=== PATIENT | male | born 1940 | race Caucasian/White ===

== ENCOUNTER 2020-06-02 14:23 | Emergency (ER) | payer OTHER, SELFPAY ==
[2020-06-02] VITALS (9 sets, daily range): BP systolic 154–175; BP diastolic 84–94; PULSE 52–80; RESP 18; TEMP 36.9; O2SAT 92–99; BMI 23.6
--- NOTE | 2020-06-02 14:47 | DI.RAD.S_ITS ---
PROCEDURE: XR HIP W PEL IF DONE LT 2V INDICATIONS: glf TECHNIQUE: AP pelvis with lateral view(s) of the left hip(s). COMPARISON: None. FINDINGS: Bones: Fracture of the left superior and inferior pubic rami. Lower lumbar spondylosis and moderate bilateral hip joint degeneration. Soft tissues: The visualized bowel gas pattern is normal. No suspicious soft tissue calcifications. IMPRESSION: Fractures of the left superior and inferior pubic rami. Dictated by: Cliff Marie M.D. on 06/02/2020 at 15:55 Approved by: Cliff Marie M.D. on 06/02/2020 at 15:57
[2020-06-02] MEDS: IBUPROFEN 400 MG TABLET PO (16:38)
[2020-06-02] MEDS: OXYCODONE/APAP 5/325 PREPACK 1 BOTTLE MISC (16:38)
[2020-06-02] MEDS: OXYCODONE/ACETAMINOPHEN 5/325 TABLET 1 TAB PO (16:39)
--- NOTE | 2020-06-02 17:24 | PC.NURSE ---
Pt ambulates using walker with some difficulty, abnormal gait.
--- NOTE | 2020-06-02 17:54 | ED.FALL ---
HPI - Fall General Chief Complaint: Fall Stated Complaint: Fall Time Seen by Provider: 06/02/20 14:31 Source: EMS Mode of arrival: EMS History of Present Illness HPI Narrative: 80-year-old gentleman with hypertension hyperlipidemia who suffered a mechanical fall at [place]. He landed on his left buttock and was in too much pain to stand up. His transported by airlift for further evaluation. At the time he has arrived in the emergency room his pain is down to 1/10 as long as he still. Leg is straight there is no foreshortening or internal rotation. Related Data Previous Rx's Medication Instructions Recorded oxycodone-acetaminophen 1 tab PO Q6H PRN #20 tab 06/02/20 polyethylene glycol 3350 [Miralax] 17 gram PO DAILY PRN #30 each 06/02/20 Allergies Allergy/AdvReac Type Severity Reaction Status Date / Time No Known Drug Allergies Allergy Verified 06/02/20 16:38 Review of Systems Review of Systems Narrative: Pertinent positive and negative findings as per HPI Remainder of review of systems is otherwise unremarkable for Constitutional: Fevers, chills, weakness ENT: No sore throat, neck pain, ear pain CV: Chest pain, palpitations, dyspnea on exertion Respiratory: Cough, wheeze, dyspnea GI: Nausea, vomiting, diarrhea, change in bowel habits, black or bloody stools : Dysuria, hematuria, flank pain MS: Muscle weakness, numbness, joint swelling or warmth Skin: Rashes, nonhealing lesions Neuro: Syncope, dizziness, tingling Patient History Medical History Closed pelvic fracture (Acute) Hyperlipidemia (Acute) Hypertension (Acute) Social History Smoking Status: Never smoker Smoking Status: Never smoker Exam Narrative Exam Narrative: General: Healthy appearing, in no acute distress. Able to give a complete and coherent history. Well-nourished well-developed HEENT: Moist mucous membranes, normal sclera with reactive pupils, Neck: No JVD, supple Respiratory: Lungs are clear to auscultation, no wheezing no rales no rhonchi. Full and symmetrical air movement Cardiac: Regular rate and rhythm no murmurs no bruits Abdomen: Soft nontender good bowel tones, no flank pain Skin: Warm and dry, no rashes Neurologic: Grossly neurologically intact with no obvious asymmetries or abnormalities Extremities: Minor abrasion to the left knee. Minimal tenderness with internal and external rotation of the left hip. Mild tenderness with palpation to left ischial tuberosity. No tenderness along the lumbar spine or sacrum. No tenderness with pelvic ring compression. Neurovascularly intact bilaterally with lower extremities Psych: Cooperative, appropriate insight and affect Initial Vital Signs Initial Vital Signs: Vital Signs Temperature 98.5 F 06/02/20 14:26 Pulse Rate 64 06/02/20 14:26 Respiratory Rate 18 06/02/20 14:26 Blood Pressure 160/84 H 06/02/20 14:26 Pulse Oximetry 97 06/02/20 14:26 Course Orders Ordered: ED Orders 06/02/20 14:47 XR hip w pel if done LT 2V Stat Discontinued Medications Ibuprofen (Advil) 400 mg PO NOW ONE Stop: 06/02/20 16:28 Last Admin: 06/02/20 16:38 Dose: 400 mg Documented by: KBROTEM Oxycodone/Acetaminophen (Percocet 5/325) 1 tab PO NOW ONE Stop: 06/02/20 16:28 Last Admin: 06/02/20 16:39 Dose: 1 tab Documented by: KBROTEM Oxycodone/Acetaminophen (Endocet 5/325 Prepack) 1 bottle MISC SEEINSTR ONE Stop: 06/02/20 16:28 Last Admin: 06/02/20 16:38 Dose: 1 bottle Documented by: KBROTEM Vital Signs Vital signs: Vital Signs - 8 hr 06/02/20 14:26 06/02/20 14:31 06/02/20 14:32 Temperature 98.5 F Pulse Rate 64 52 L 52 L Respiratory Rate 18 Blood Pressure 160/84 H 166/94 H Pulse Oximetry 97 92 99 06/02/20 15:04 06/02/20 15:30 06/02/20 16:00 Temperature Pulse Rate 55 L 64 69 Respiratory Rate Blood Pressure Pulse Oximetry 97 97 96 06/02/20 16:30 06/02/20 17:00 Temperature Pulse Rate 69 69 Respiratory Rate Blood Pressure 175/94 H 167/85 H Pulse Oximetry 96 96 MDM - Fall Medical Records Attestation: I reviewed the patient's medical records. Imaging Data X-ray pelvis and hip: Radiologist's Impression: IMPRESSION: Fractures of the left superior and inferior pubic rami. Dictated by: Cliff Marie M.D. on 06/02/2020 at 15:55 MDM Narrative Medical decision making narrative: 80-year-old gentleman with a ground level fall after stumbling with fractures of the superior and inferior pubic rami on the left side. With moderate pain control Madhu is able to get up and with some difficulty use a walker but is able to circum navigate the entire emergency room and will be safe for home discharge. Will discussed pain control as well as voiding complications of excessive pain and narcotic use. Priority boarding pass to get back to work assess evening will be facilitated. He is safe for home discharge Discharge Plan Departure Patient Disposition: Home Clinical Impression: Closed pelvic fracture Qualifiers: Encounter type: initial encounter Pelvic bone location: ischium Fracture morphology: unspecified fracture morphology Fracture alignment: nondisplaced Laterality: left Qualified Code(s): S32.602A - Unspecified fracture of left ischium, initial encounter for closed fracture Fall Qualifiers: Encounter type: initial encounter Qualified Code(s): W19.XXXA - Unspecified fall, initial encounter Activity Restrictions/Additional Instructions: Thank you for coming in today Fortunately you did not break your hip. You did break your pubic rami, your Sitz bone on the left side. This can be painful however it will heal nicely and you do not need any surgery. There is no evidence of additional bleeding or other complications. Using 400 mg of ibuprofen (2 [id number] pills) and 1 Tylenol every 6 hours can be very helpful in controlling pain. For severe pain using 400 mg of ibuprofen and 1 Percocet can be helpful. Any day that, you use Percocet a narcotic, please also use a dose of MiraLax (17 g= 1 full purple cap full) in a large glass of water to prevent constipation Use the walker to help with mobility and stability. It is important that you do get up and move around. Please follow-up with your regular doctor in 3-4 days to make sure that you are healing well and pain is adequately controlled If he have additional complaints concerns or new findings please return to the emergency room. Prescriptions: New oxycodone-acetaminophen 5-325 mg tablet 1 tab PO Q6H PRN (Reason: pain) Qty: 20 RF: 0 polyethylene glycol 3350 [Miralax] 17 gram powder in packet 17 gram PO DAILY PRN (Reason: constipation) Qty: 30 RF: 0
== END 2020-06-02 18:14 | disposition home or self-care (01) ==
PROVIDERS: Emergency Provider Emergency Medicine
DX: S32.602A Unspecified fracture of left ischium, initial encounter for closed fracture (principal); W19.XXXA Unspecified fall, initial encounter; I10 Essential (primary) hypertension; E78.5 Hyperlipidemia, unspecified
CPT/HCPCS: 73502; 99283

== ENCOUNTER → 2020-07-22 14:59 | Outpatient (CLI) | payer OTHER, SELFPAY ==
--- NOTE | 2020-07-22 | DI.RAD.S_ITS ---
PROCEDURE: XR PELVIS 1-2V INDICATIONS: Other specified fracture of left pubis, subsequent encounter TECHNIQUE: 1 view(s) of the pelvis acquired. COMPARISON: [facility], CR, XR HIP W PEL IF DONE LT 2V, 06/02/2020, 14:41. FINDINGS: Bones: Healing superior and inferior pubic rami fractures. Stable alignment. Soft tissues: Visualized bowel gas pattern is normal. No suspicious soft tissue calcifications. IMPRESSION: Stable alignment of pubic rami fractures. Dictated by: Erin Estevez M.D. on 07/22/2020 at 16:28 Approved by: Erin Estevez M.D. on 07/22/2020 at 16:33
== END ==
PROVIDERS: PCP Family Medicine; Referring Provider Family Medicine; Visit Provider Family Medicine
DX: S32.592D Other specified fracture of left pubis, subsequent encounter for fracture with routine healing (principal); X58.XXXD Exposure to other specified factors, subsequent encounter
CPT/HCPCS: 72170

== ENCOUNTER 2020-11-23 23:13 | Inpatient (IN) | payer OTHER, SELFPAY ==
--- NOTE | 2020-11-23 23:25 | ED_ITS ---
HPI - General Adult General Chief complaint: Shortness of Breath/Dyspnea Stated complaint: EMT of [place] re:SOB, tiredness Time Seen by Provider: 11/23/20 23:25 History of Present Illness HPI narrative: 80-year-old gentleman with a history of hyperlipidemia and mild insomnia who presents with a couple of weeks of increasing exertional dyspnea and over the last couple of days has noticed that simply standing up please him slightly lightheaded and dyspneic. No specific chest pain. He denies any fevers, cough, chills, abdominal pain. He states that he has not had any change to bowel or bladder habits, and specifically denies black stools or blood in his stool. He has had no significant weight changes, does note that he slightly more fatigued does not complain of orthopnea and has not noticed significant lower extremity edema. He comes in from [facility] for further evaluation. Related Data Previous Rx's Medication Instructions Recorded oxycodone-acetaminophen 1 tab PO Q6H PRN #20 tab 06/02/20 polyethylene glycol 3350 [Miralax] 17 gram PO DAILY PRN #30 each 06/02/20 Allergies Allergy/AdvReac Type Severity Reaction Status Date / Time No Known Drug Allergies Allergy Verified 11/23/20 23:28 Review of Systems Review of Systems ROS Unobtainable: All systems reviewed & are unremarkable except as noted in HPI and below Patient History Medical History (Updated 11/24/20 @ 00:56 by Michelle Florentino MD) Closed pelvic fracture Hyperlipidemia Hypertension Social History Smoking Status: Never smoker Smoking Status: Never smoker Exam Narrative Exam Narrative: General: Healthy appearing, in no acute distress. Able to give a complete and coherent history. Well-nourished well-developed HEENT: Moist mucous membranes, pale sclera with reactive pupils, Neck: No JVD, supple Respiratory: Lungs are clear to auscultation, no wheezing no rales no rhonchi. Full and symmetrical air movement Cardiac: Regular rate and rhythm no murmurs no bruits Abdomen: Soft, nontender, good bowel tones, no flank pain Skin: Warm and dry, slightly pale no rashes Neurologic: Grossly neurologically intact with no obvious asymmetries or abnormalities Extremities: No trauma, well perfused Psych: Cooperative, appropriate insight and affect Rectal exam: Guaiac positive Initial Vital Signs Initial Vital Signs: Vital Signs Temperature 97.5 F L 11/23/20 23:27 Pulse Rate 83 11/23/20 23:27 Respiratory Rate 26 H 11/23/20 23:27 Blood Pressure 109/55 L 11/23/20 23:27 Pulse Oximetry 100 11/23/20 23:27 Course Orders Ordered: ED Orders 11/23/20 23:26 XR chest 1V Stat EKG-12 Lead Stat 11/23/20 23:30 COVID19 Stat Complete Blood Count AUTO DIFF Stat Comprehensive Metabolic Panel Stat D Dimer Stat Lactate (Lactic Acid) Stat Magnesium Stat NT-proBNP (BNP-Adult 18+) Stat Troponin I Stat 11/23/20 23:53 Packed Cells Stat Type and Screen Stat Urinalysis and Microscopic Stat 11/23/20 23:58 Blood Culture Stat 11/24/20 00:45 Procalcitonin Stat Pantoprazole Sodium 80 mg/ (Sodium Chloride) 100 mls @ 10 mls/hr IV CONT KEYONNA Discontinued Medications Acetaminophen (Acetaminophen 325 Mg Tablet) 975 mg PO NOW ONE Stop: 11/24/20 00:49 Diphenhydramine HCl (Diphenhydramine 50 Mg/Ml Vial) 25 mg IV NOW ONE Stop: 11/24/20 00:49 Furosemide (Furosemide 40 Mg/4 Ml Vial) 20 mg IV NOW ONE Stop: 11/24/20 00:49 Pantoprazole Sodium (Pantoprazole 40 Mg Vial) 40 mg IV NOW ONE Stop: 11/24/20 00:46 Vital Signs Vital signs: Vital Signs - 8 hr 11/23/20 23:27 11/23/20 23:36 Temperature 97.5 F L Pulse Rate 83 74 Respiratory Rate 26 H 20 Blood Pressure 109/55 L Pulse Oximetry 100 100 Medical Decision Making Medical Records Medical records reviewed: Yes I reviewed the patient's medical records. Lab Data Lab results reviewed: Yes I reviewed the patient's lab results. Result diagrams: 11/23/20 23:30 11/23/20 23:30 Labs: Lab Results 11/23/20 11/23/20 11/23/20 Range/Units 23:30 23:30 23:30 WBC 6.1 (4.5-11.0) X10^3/uL RBC 2.04 L (4.5-5.9) X10^6/uL Hgb 4.7 L* (13.5-17.5) g/dL Hct 15.5 L* (41-53) % MCV 76.0 L (80-100) fL MCH 22.9 L (26-34) PG MCHC 30.2 (30-36) % RDW 18.0 H (11.6-14.8) % Plt Count 375 (150-400) X10^3/uL Neut % (Auto) 76.5 H (50-75) % Lymph % (Auto) 13.7 L (25-40) % [place] % (Auto) 8.5 (3-14) % Eos % (Auto) 0.2 L (2-4) % Baso % (Auto) 1.1 (0-2) % Neut # (Auto) 4700 (6413-8329) /uL Lymph # (Auto) 800 L (4674-1071) /uL [place] # (Auto) 500 (0-900) /uL Eos # (Auto) 0 (0-450) /uL Baso # (Auto) 100 (0-100) /uL D-Dimer 356 H (<230) ng/mL Sodium 136 L (137-145) mmol/L Potassium 4.4 (3.4-5.1) mmol/L Chloride 104 (98-107) mmol/L Carbon Dioxide 22 (22-32) mmol/L BUN 36 H (9-20) mg/dL Creatinine 1.51 H (0.66-1.25) mg/dL Estimated GFR 44.5 L (>60) mL/min BUN/Creatinine Ratio 23.8 H (6-22) Glucose 101 (80-110) mg/dL Lactate (0.7-2.1) mmol/L Calcium 8.9 (8.4-10.2) mg/dL Magnesium 2.5 H (1.6-2.3) mg/dL Total Bilirubin 0.4 (0.2-1.3) mg/dL AST 29 (17-59) IU/L ALT 25 (<50) IU/L Alkaline Phosphatase 49 (38-126) U/L Troponin I < 0.012 (0.01-0.034) ng/mL NT-Pro-B Natriuret Pep 435 (<450) pg/mL Total Protein 6.2 L (6.3-8.2) g/dL Albumin 3.9 (3.5-5.0) g/dL Globulin 2.3 (1.7-4.1) g/dL Albumin/Globulin Ratio 1.7 (1.0-2.8) SARS-CoV-2 (PCR) (Negative) Blood Type Antibody Screen Crossmatch 11/23/20 11/23/20 11/24/20 Range/Units 23:30 23:30 00:05 WBC (4.5-11.0) X10^3/uL RBC (4.5-5.9) X10^6/uL Hgb (13.5-17.5) g/dL Hct (41-53) % MCV (80-100) fL MCH (26-34) PG MCHC (30-36) % RDW (11.6-14.8) % Plt Count (150-400) X10^3/uL Neut % (Auto) (50-75) % Lymph % (Auto) (25-40) % [place] % (Auto) (3-14) % Eos % (Auto) (2-4) % Baso % (Auto) (0-2) % Neut # (Auto) (6398-2057) /uL Lymph # (Auto) (8797-2073) /uL [place] # (Auto) (0-900) /uL Eos # (Auto) (0-450) /uL Baso # (Auto) (0-100) /uL D-Dimer (<230) ng/mL Sodium (137-145) mmol/L Potassium (3.4-5.1) mmol/L Chloride (98-107) mmol/L Carbon Dioxide (22-32) mmol/L BUN (9-20) mg/dL Creatinine (0.66-1.25) mg/dL Estimated GFR (>60) mL/min BUN/Creatinine Ratio (6-22) Glucose (80-110) mg/dL Lactate 4.5 H* (0.7-2.1) mmol/L Calcium (8.4-10.2) mg/dL Magnesium (1.6-2.3) mg/dL Total Bilirubin (0.2-1.3) mg/dL AST (17-59) IU/L ALT (<50) IU/L Alkaline Phosphatase (38-126) U/L Troponin I (0.01-0.034) ng/mL NT-Pro-B Natriuret Pep (<450) pg/mL Total Protein (6.3-8.2) g/dL Albumin (3.5-5.0) g/dL Globulin (1.7-4.1) g/dL Albumin/Globulin Ratio (1.0-2.8) SARS-CoV-2 (PCR) Negative (Negative) Blood Type A Positive Antibody Screen Negative Crossmatch See Detail Imaging Data Chest x-ray: Attestation: I personally reviewed and interpreted this imaging study as follows: My Impression: Radiology interprets the mild right perihilar opacity is a possible pneumonia. Given complete lack of clinical evidence to support this I think the likelihood of pneumonia is low at this time. Radiologist's Impression: Small hiatal hernia. Mild right perihilar opacity. This could represent developing pneumonia is. Normal heart, normal lung left side. Dr Jose Negron ECG Data Attestation: I personally reviewed and interpreted this ECG as follows: Interpretation: 75 beats per minute Sinus rhythmmild nonspecific ST T wave abnormalities without acute ischemic changes Normal axis, normal intervals MDM Narrative Medical decision making narrative: 80-year-old gentleman presents with progressive exertional dyspnea. EKG is unremarkable. There is no clinical suggestion of acute infection and my review of chest x-ray is unremarkable. Urine is still pending. Initial labs come back with dramatic anemia and slightly elevated lactic acid with creatinine slightly elevated at 1.5. At this point I suspect the hemoglobin of 4.7 and and hematocrit of 15.5 are to blame for the slightly elevated lactic acid rather than any infectious etiology. His troponin and proBNP are unremarkable. With a guaiac-positive stool most likely diagnosis at this point is GI blood loss slow and chronic. He clearly is tolerating the dramatic anemia quite well. Will transfuse 2 units of packed red blood cells, anticipate hospital admission and surgical consult for upper lower endoscopies to see if we can figure where the blood is actually coming from. As he does have a history of gastric bleeding approximately 5 years ago assumption is same source. Will keep him on a Protonix drip for the time being. 12:48 care is reviewed with hospitalist, RACHELE Mccord. She will admit the patient. Does ask that surgery be notified of admission with request to consult tomorrow. 1250am case is discussed with Dr. Giordano. He requested the patient be NPO and he will see him 1st morning with anticipation of EGD today Discharge Plan Departure Patient Disposition: Home Clinical Impression: Acute blood loss anemia, Exertional dyspnea GI bleed Qualifiers: GI bleed type/associated pathology: unspecified gastrointestinal hemorrhage type Qualified Code(s): K92.2 - Gastrointestinal hemorrhage, unspecified
--- NOTE | 2020-11-23 23:26 | DI.RAD.S_ITS ---
PROCEDURE: XR CHEST 1V INDICATIONS: exertional dyspnea TECHNIQUE: One view of the chest was acquired. COMPARISON: None. FINDINGS: Surgical changes and devices: None. Lungs and pleura: Lungs are clear. No pleural effusions or pneumothorax. Mediastinum: Mediastinal contours appear normal. Heart size is normal. Bones and chest wall: No suspicious bony lesions. Overlying soft tissues appear unremarkable. IMPRESSION: No acute cardiopulmonary disease process. Dictated by: Carolee Carey MD, PhD on 11/24/2020 at 8:57 Approved by: Carolee Carey MD, PhD on 11/24/2020 at 8:59
[2020-11-23 23:27] VITALS: BP 109/55; PULSE 83; RESP 26; TEMP 36.4; O2SAT 100; BMI 24.3
[2020-11-23 23:36] VITALS: PULSE 74; RESP 20; O2SAT 100
[2020-11-23 23:43] LABS: Basophils Absolute Auto 100 /uL (0-100); Basophils Percent Auto 1.1 % (0-2); Eosinophils Absolute Auto 0 /uL (0-450); Eosinophils Percent Auto 0.2 % (2-4); Lymphocytes Absolute Auto 800 /uL (1100-4500); Lymphocytes Percent Auto 13.7 % (25-40); Mean Corpuscular HGB Conc 30.2 % (30-36); Mean Corpuscular Hemoglobin 22.9 PG (26-34); Monocytes Absolute Auto 500 /uL (0-900); Monocytes Percent Auto 8.5 % (3-14); Neutrophils Absolute Auto 4700 /uL (1500-7000); Neutrophils Percent Auto 76.5 % (50-75); Platelet Count 375 X10^3/uL (150-400); Red Blood Cell Count 2.04 X10^6/uL (4.5-5.9); White Blood Cell Count 6.1 X10^3/uL (4.5-11.0)
[2020-11-23 23:49] LABS: D Dimer 356 ng/mL (<230)
[2020-11-23 23:50] LABS: Alanine Aminotransferase 25 IU/L (<50); Albumin 3.9 g/dL (3.5-5.0); Albumin Globulin Ratio 1.7 (1.0-2.8); Alkaline Phosphatase 49 U/L (38-126); Aspartate Aminotransferase 29 IU/L (17-59); BUN Creatinine Ratio 23.8 (6-22); Bilirubin Total 0.4 mg/dL (0.2-1.3); Blood Urea Nitrogen 36 mg/dL (9-20); Calcium 8.9 mg/dL (8.4-10.2); Carbon Dioxide 22 mmol/L (22-32); Chloride 104 mmol/L (98-107); Estimated Glomerular Filt Rate 44.5 mL/min (>60); Globulin 2.3 g/dL (1.7-4.1); Glucose 101 mg/dL (80-110); HEMOLYSIS < 15 (0-50); Magnesium 2.5 mg/dL (1.6-2.3); Potassium 4.4 mmol/L (3.4-5.1); Sodium 136 mmol/L (137-145); Total Protein 6.2 g/dL (6.3-8.2)
[2020-11-23 23:51] LABS: Lactate (Lactic Acid) 4.5 mmol/L (0.7-2.1)
[2020-11-23 23:52] LABS: Hemoglobin 4.7 g/dL (13.5-17.5)
[2020-11-23 23:53] LABS: Add Manual Diff / Slide Review SLIDE REVIEW; COVID19 -Nasal RAPID Negative (Negative); Hematocrit 15.5 % (41-53)
[2020-11-24] VITALS (23 sets, daily range): BP systolic 126–156; BP diastolic 60–92; PULSE 70–80; RESP 14–32; TEMP 36.3–37.3; O2SAT 96–100; BMI 24.3
[2020-11-24 00:03] LABS: NT-proBNP (BNP-Adult 18+) 435 pg/mL (<450); Troponin I < 0.012 ng/mL (0.01-0.034)
--- NOTE | 2020-11-24 00:31 | ED_ITS ---
HPI - General Adult General Chief complaint: Shortness of Breath/Dyspnea Stated complaint: EMT of [place] re:SOB, tiredness Time Seen by Provider: 11/23/20 23:25 Source: patient Mode of arrival: Ambulatory Related Data Previous Rx's Medication Instructions Recorded oxycodone-acetaminophen 1 tab PO Q6H PRN #20 tab 06/02/20 polyethylene glycol 3350 [Miralax] 17 gram PO DAILY PRN #30 each 06/02/20 Allergies Allergy/AdvReac Type Severity Reaction Status Date / Time No Known Drug Allergies Allergy Verified 11/23/20 23:28 Patient History Medical History Closed pelvic fracture Hyperlipidemia Hypertension Social History Smoking Status: Never smoker Smoking Status: Never smoker alcohol intake frequency: 3 or more drinks per day Substance Use Type: does not use Exam Initial Vital Signs Initial Vital Signs: Vital Signs Temperature 97.5 F L 11/23/20 23:27 Pulse Rate 83 11/23/20 23:27 Respiratory Rate 26 H 11/23/20 23:27 Blood Pressure 109/55 L 11/23/20 23:27 Pulse Oximetry 100 11/23/20 23:27 Course Orders Ordered: ED Orders 11/23/20 23:26 XR chest 1V Stat EKG-12 Lead Stat 11/23/20 23:30 COVID19 Stat Complete Blood Count AUTO DIFF Stat Comprehensive Metabolic Panel Stat D Dimer Stat Lactate (Lactic Acid) Stat Magnesium Stat NT-proBNP (BNP-Adult 18+) Stat Troponin I Stat 11/23/20 23:53 Blood Culture Stat Packed Cells Stat Type and Screen Stat Urinalysis and Microscopic Stat Vital Signs Vital signs: Vital Signs - 8 hr 11/23/20 23:27 11/23/20 23:36 Temperature 97.5 F L Pulse Rate 83 74 Respiratory Rate 26 H 20 Blood Pressure 109/55 L Pulse Oximetry 100 100 Medical Decision Making Lab Data Result diagrams: 11/23/20 23:30 11/23/20 23:30 Labs: Lab Results 11/23/20 11/23/20 11/23/20 Range/Units 23:30 23:30 23:30 WBC 6.1 (4.5-11.0) X10^3/uL RBC 2.04 L (4.5-5.9) X10^6/uL Hgb 4.7 L* (13.5-17.5) g/dL Hct 15.5 L* (41-53) % MCV 76.0 L (80-100) fL MCH 22.9 L (26-34) PG MCHC 30.2 (30-36) % RDW 18.0 H (11.6-14.8) % Plt Count 375 (150-400) X10^3/uL Neut % (Auto) 76.5 H (50-75) % Lymph % (Auto) 13.7 L (25-40) % [place] % (Auto) 8.5 (3-14) % Eos % (Auto) 0.2 L (2-4) % Baso % (Auto) 1.1 (0-2) % Neut # (Auto) 4700 (7848-7071) /uL Lymph # (Auto) 800 L (1726-1590) /uL [place] # (Auto) 500 (0-900) /uL Eos # (Auto) 0 (0-450) /uL Baso # (Auto) 100 (0-100) /uL D-Dimer 356 H (<230) ng/mL Sodium 136 L (137-145) mmol/L Potassium 4.4 (3.4-5.1) mmol/L Chloride 104 (98-107) mmol/L Carbon Dioxide 22 (22-32) mmol/L BUN 36 H (9-20) mg/dL Creatinine 1.51 H (0.66-1.25) mg/dL Estimated GFR 44.5 L (>60) mL/min BUN/Creatinine Ratio 23.8 H (6-22) Glucose 101 (80-110) mg/dL Lactate (0.7-2.1) mmol/L Calcium 8.9 (8.4-10.2) mg/dL Magnesium 2.5 H (1.6-2.3) mg/dL Total Bilirubin 0.4 (0.2-1.3) mg/dL AST 29 (17-59) IU/L ALT 25 (<50) IU/L Alkaline Phosphatase 49 (38-126) U/L Troponin I < 0.012 (0.01-0.034) ng/mL NT-Pro-B Natriuret Pep 435 (<450) pg/mL Total Protein 6.2 L (6.3-8.2) g/dL Albumin 3.9 (3.5-5.0) g/dL Globulin 2.3 (1.7-4.1) g/dL Albumin/Globulin Ratio 1.7 (1.0-2.8) SARS-CoV-2 (PCR) (Negative) Blood Type Crossmatch 11/23/20 11/23/20 11/24/20 Range/Units 23:30 23:30 00:05 WBC (4.5-11.0) X10^3/uL RBC (4.5-5.9) X10^6/uL Hgb (13.5-17.5) g/dL Hct (41-53) % MCV (80-100) fL MCH (26-34) PG MCHC (30-36) % RDW (11.6-14.8) % Plt Count (150-400) X10^3/uL Neut % (Auto) (50-75) % Lymph % (Auto) (25-40) % [place] % (Auto) (3-14) % Eos % (Auto) (2-4) % Baso % (Auto) (0-2) % Neut # (Auto) (3019-9622) /uL Lymph # (Auto) (1608-4626) /uL [place] # (Auto) (0-900) /uL Eos # (Auto) (0-450) /uL Baso # (Auto) (0-100) /uL D-Dimer (<230) ng/mL Sodium (137-145) mmol/L Potassium (3.4-5.1) mmol/L Chloride (98-107) mmol/L Carbon Dioxide (22-32) mmol/L BUN (9-20) mg/dL Creatinine (0.66-1.25) mg/dL Estimated GFR (>60) mL/min BUN/Creatinine Ratio (6-22) Glucose (80-110) mg/dL Lactate 4.5 H* (0.7-2.1) mmol/L Calcium (8.4-10.2) mg/dL Magnesium (1.6-2.3) mg/dL Total Bilirubin (0.2-1.3) mg/dL AST (17-59) IU/L ALT (<50) IU/L Alkaline Phosphatase (38-126) U/L Troponin I (0.01-0.034) ng/mL NT-Pro-B Natriuret Pep (<450) pg/mL Total Protein (6.3-8.2) g/dL Albumin (3.5-5.0) g/dL Globulin (1.7-4.1) g/dL Albumin/Globulin Ratio (1.0-2.8) SARS-CoV-2 (PCR) Negative (Negative) Blood Type A Positive Crossmatch See Detail Discharge Plan Departure Prescriptions: No Action oxycodone-acetaminophen 5-325 mg tablet 1 tab PO Q6H PRN (Reason: pain) Qty: 20 RF: 0 polyethylene glycol 3350 [Miralax] 17 gram powder in packet 17 gram PO DAILY PRN (Reason: constipation) Qty: 30 RF: 0
[2020-11-24] MEDS: diphenhydrAMINE 50 MG/ML VIAL 25 MG IV (01:13)
[2020-11-24] MEDS: PANTOPRAZOLE 40 MG VIAL IV ×2 (01:14→18:00)
[2020-11-24] MEDS: FUROSEMIDE 40 MG/4 ML VIAL 20 MG IV (01:14)
[2020-11-24] MEDS: ACETAMINOPHEN 325 MG TABLET 975 MG PO (01:14)
[2020-11-24] MEDS: PANTOPRAZOLE 80 MG in SODIUM CHLORIDE 0.9% 100 ML 10 ML IV ×2 (01:22→11:02)
[2020-11-24 01:23] LABS: Procalcitonin 0.19 ng/mL (<0.5)
[2020-11-24 01:35] LABS: Reflexed Lactate in 2 Hours Y
--- NOTE | 2020-11-24 01:50 | PM.HP.1 ---
History of Present Illness History of Present Illness Date Patient Seen: 11/24/20 Time Patient Seen: 00:45 Chief complaint: EMT of [place] re:SOB, tiredness Narrative: Edwin James is an 80 y.o. male with hypertension and hyperlipidemia presented after a several day history of exertional dyspnea. It is worsened by standing up. He denies fever, productive cough, nausea or vomiting. He does endorse a history of upper GI bleeding found initially during his last colonoscopy at [facility], and underwent subsequent upper endoscopy as they were not able to locate the source of bleeding during the colonoscopy. He stated at that time, he did not require a transfusion, nor was he symptomatic. He does endorse having scant rectal bleeding that seemed to start at the beginning of a bowel movement, but is unable to tell if his stool is coffee ground colored. He states he takes a statin but there is no medication found in our records. In the ED, he was found to have severe anemia with a hemoglobin and hematocrit of 4.7/15.5 and ED signout indicated that he was guiac positive. His lactate was also significantly elevated at 4.5. Age related D-dimer was within normal limits. He has an elevated creatinine of 1.51, though it is not known if this is his baseline. Troponin and procalcitonin were normal and he is COVID-19 negative. Patient has been type and screened and is A positive. Patient History Medical History (Updated 11/24/20 @ 01:51 by RACHELE Myers) Closed pelvic fracture History of upper gastrointestinal bleeding Hyperlipidemia Hypertension Surgical History (Updated 11/24/20 @ 01:51 by RACHELE Myers) H/O wrist surgery Family & Social History Family History (Updated 11/24/20 @ 01:53 by RACHELE Myers) Father Cancer of kidney Mother Breast CA Daughter Celiac disease Safety & Behavioral: Feels Safe in Current Yes Environment Been Physically Hurt or No Threatened By a Person Tobacco & Substance use: Smoking Status very remote history of tobacco use alcohol intake frequency 1-1-1/2 drinks hard liquer several times a week Substance Use Type does not use Meds Home Medications and Allergies Home Medications Medication Instructions Recorded Confirmed Type oxycodone-acetaminophen 1 tab PO Q6H PRN #20 tab 06/02/20 Rx polyethylene glycol 3350 [Miralax] 17 gram PO DAILY PRN #30 each 06/02/20 Rx Allergies Allergy/AdvReac Type Severity Reaction Status Date / Time No Known Drug Allergies Allergy Verified 11/23/20 23:28 Review of Systems Review of Systems ROS: Yes All systems reviewed with the patient and are negative except as otherwise documented Exam Vital Signs (past 8 hours): - 11/23/20 23:27 11/23/20 23:36 11/24/20 01:07 Temperature 97.5 F L 99.1 F Pulse Rate 83 74 77 Respiratory Rate 26 H 20 16 Blood Pressure 109/55 L 132/63 Pulse Oximetry 100 100 11/24/20 01:14 Temperature 99.1 F Pulse Rate Respiratory Rate Blood Pressure Pulse Oximetry Oxygen Delivery Method Room Air Narrative Exam Narrative: Gen: Alert, oriented, well-developed 80 y.o. male, appears fatigued HEENT: normocephalic, atraumatic, conjunctiva clear, sclera non-icteric, oral mucosa pink and moist Neck: supple, full ROM, no JVD, trachea is midline Resp: Lungs CTA, non-labored breathing CV: RRR, no murmur or rubs Abd: soft, non-tender, normoactive BTs Skin: no lesions or rashes, dry and intact, normal color Neuro: Alert and oriented X 4 w/no focal deficits. Speech clear and coherent. Extremities: moves all 4 extremities, is ambulatory, negative Donnie?s sign Psyche: normal mood and affect. Objective Labs Result Diagrams: 11/23/20 23:30 11/23/20 23:30 Labs: Laboratory Results - last 24 hr 11/23/20 11/23/20 11/23/20 23:30 23:30 23:30 WBC 6.1 RBC 2.04 L Hgb 4.7 L* Hct 15.5 L* MCV 76.0 L MCH 22.9 L MCHC 30.2 RDW 18.0 H Plt Count 375 Neut % (Auto) 76.5 H Lymph % (Auto) 13.7 L [place] % (Auto) 8.5 Eos % (Auto) 0.2 L Baso % (Auto) 1.1 Neut # (Auto) 4700 Lymph # (Auto) 800 L [place] # (Auto) 500 Eos # (Auto) 0 Baso # (Auto) 100 D-Dimer 356 H Sodium 136 L Potassium 4.4 Chloride 104 Carbon Dioxide 22 BUN 36 H Creatinine 1.51 H Estimated GFR 44.5 L BUN/Creatinine Ratio 23.8 H Glucose 101 Lactate Calcium 8.9 Magnesium 2.5 H Total Bilirubin 0.4 AST 29 ALT 25 Alkaline Phosphatase 49 Troponin I < 0.012 NT-Pro-B Natriuret Pep 435 Total Protein 6.2 L Albumin 3.9 Globulin 2.3 Albumin/Globulin Ratio 1.7 Procalcitonin SARS-CoV-2 (PCR) Blood Type Antibody Screen Crossmatch 11/23/20 11/23/20 11/23/20 23:30 23:30 23:30 WBC RBC Hgb Hct MCV MCH MCHC RDW Plt Count Neut % (Auto) Lymph % (Auto) [place] % (Auto) Eos % (Auto) Baso % (Auto) Neut # (Auto) Lymph # (Auto) [place] # (Auto) Eos # (Auto) Baso # (Auto) D-Dimer Sodium Potassium Chloride Carbon Dioxide BUN Creatinine Estimated GFR BUN/Creatinine Ratio Glucose Lactate 4.5 H* Calcium Magnesium Total Bilirubin AST ALT Alkaline Phosphatase Troponin I NT-Pro-B Natriuret Pep Total Protein Albumin Globulin Albumin/Globulin Ratio Procalcitonin 0.19 SARS-CoV-2 (PCR) Negative Blood Type Antibody Screen Crossmatch 11/24/20 00:05 WBC RBC Hgb Hct MCV MCH MCHC RDW Plt Count Neut % (Auto) Lymph % (Auto) [place] % (Auto) Eos % (Auto) Baso % (Auto) Neut # (Auto) Lymph # (Auto) [place] # (Auto) Eos # (Auto) Baso # (Auto) D-Dimer Sodium Potassium Chloride Carbon Dioxide BUN Creatinine Estimated GFR BUN/Creatinine Ratio Glucose Lactate Calcium Magnesium Total Bilirubin AST ALT Alkaline Phosphatase Troponin I NT-Pro-B Natriuret Pep Total Protein Albumin Globulin Albumin/Globulin Ratio Procalcitonin SARS-CoV-2 (PCR) Blood Type A Positive Antibody Screen Negative Crossmatch See Detail Assessment & Plan Assessment & Plan narrative: Edwin James will be admitted and further worked up for a severe anemia. Acute Anemia, severe, present on admission - He has been typed and crossed and will receive 2 units PRBC with lasix administered in between units - CBC in the am History of an upper GI bleed, suspected now - Surgery has been notified and will see the patient in the am - NPO - Consider obtaining upper and lower GI studies from either the [facility] or [facility] Acute kidney injury, unknown if chronic with a eGFR of 44.5 - He will receive IV hydration, he is likely volume depleted - Recheck creatinine and BUN in the am Hyperlipidemia, chronic - Will contact his PCP to obtain current medication record VTE prophylaxis: Wells risk score: 0 Bilateral SCDs, pharmacological VTE prophylaxis contraindicated due to current active bleeding Consults: Dr. Giordano, General Surgery consult and involvement is appreciated. Patient is admitted under inpatient status with expected length of stay greater than 2 midnights due to severity of presenting symptoms, risk of adverse event, and complexity of treatment plan. FEN: IV NS at 100 ml/hour, NPO, C/BMP and magnesium in the am. Dispo: Probable discharge to home Code Status: Full code as discussed with patient COVID-19 COVID-19 status: Negative Result date/Date tested (Pos, Neg/Pending): 11/24/20 Scores Wells' Criteria for PE Clinical signs and symptoms of DVT: No PE is #1 Dx or equally likely: No Heart rate > 100: No Immobilization at least 3 days or surg in previous 4 weeks: No History of PE or DVT: No Hemoptysis: No Malignancy w/Treatment within 6 months or palliative: No Wells' PE Score total: 0 Quality VTE Deep Vein Thrombosis/Pulmonary Embolism Present on Admission: No
[2020-11-24 02:25] LABS: Lactate 2HR (Lactic Acid Rflx) 1.2 mmol/L (0.7-2.1)
[2020-11-24 02:26] LABS: Bacteria Urine None Seen; RBC Urine None Seen (0-5/HPF)
[2020-11-24 02:29] LABS: Appearance Urine UA CLEAR; Bilirubin Urine UA NEGATIVE (NEGATIVE); Color Urine UA YELLOW; Glucose Urine UA NEGATIVE (Negative); Ketones Urine UA TRACE (NEGATIVE); Leukocyte Esterase Urine UA NEGATIVE (NEGATIVE); Nitrite Urine UA NEGATIVE (Negative); Occult Blood Urine UA NEGATIVE (Negative); Protein Urine UA NEGATIVE (Negative); Specific Gravity Urine UA 1.015 (1.000-1.035); Urobilinogen Urine UA 0.2 E.U./dL (0.2); pH Urine UA 5.5 (4.5-8.0)
[2020-11-24 02:34] LABS: Prothrombin Time 11.8 SECONDS (10.1-12.7)
[2020-11-24 02:50] LABS: WBC Urine 0-1/HPF (0-5/HPF)
[2020-11-24 02:51] LABS: Culture Indicated Urine Cult Not Indicated; Hyaline Casts Urine 0-1/LPF; Mucus Urine 1+ (Negative)
[2020-11-24] MEDS: SODIUM CHLORIDE 0.9% 1,000 ML 100 ML IV (02:55)
[2020-11-24 03:02] LABS: Anisocytosis 2+; Hypochromasia 2+; Polychromasia 1+
[2020-11-24 03:03] LABS: Schistocytes 1+
[2020-11-24] MEDS: ZOLPIDEM 5 MG TABLET PO (03:06)
[2020-11-24] MEDS: FUROSEMIDE 20 MG/2 ML VIAL IV (04:16)
--- NOTE | 2020-11-24 09:08 | PC.NURSE ---
Day shift: informed about Pt's high urine output and ok to keep IV fluids going at TKO rate. IV protonix infusing at this time. Will ask MD what they want (IV fluid) when this protonix is complete.
[2020-11-24 09:59] LABS: Add Manual Diff / Slide Review NO; Basophils Absolute Auto 100 /uL (0-100); Basophils Percent Auto 1.7 % (0-2); Eosinophils Absolute Auto 0 /uL (0-450); Eosinophils Percent Auto 0.7 % (2-4); Lymphocytes Absolute Auto 700 /uL (1100-4500); Lymphocytes Percent Auto 16.5 % (25-40); Mean Corpuscular HGB Conc 32.6 % (30-36); Mean Corpuscular Hemoglobin 25.9 PG (26-34); Mean Corpuscular Volume 79.2 fL (80-100); Monocytes Absolute Auto 800 /uL (0-900); Monocytes Percent Auto 19.2 % (3-14); Neutrophils Absolute Auto 2500 /uL (1500-7000); Neutrophils Percent Auto 61.9 % (50-75); Platelet Count 279 X10^3/uL (150-400); Red Blood Cell Count 2.58 X10^6/uL (4.5-5.9); Red Cell Distribution Width 19.1 % (11.6-14.8)
[2020-11-24 10:03] LABS: BUN Creatinine Ratio 26.3 (6-22); Blood Urea Nitrogen 35 mg/dL (9-20); Calcium 8.2 mg/dL (8.4-10.2); Carbon Dioxide 26 mmol/L (22-32); Chloride 103 mmol/L (98-107); Estimated Glomerular Filt Rate 51.5 mL/min (>60); Glucose 88 mg/dL (80-110); HEMOLYSIS < 15 (0-50); Potassium 3.7 mmol/L (3.4-5.1); Sodium 135 mmol/L (137-145)
[2020-11-24 10:08] LABS: Hemoglobin 6.7 g/dL (13.5-17.5)
[2020-11-24 10:09] LABS: Hematocrit 20.4 % (41-53)
--- NOTE | 2020-11-24 10:44 | PM.CN ---
History of Present Illness Consult details Date Patient Seen: 11/24/20 Time Patient Seen: 10:44 Chief complaint: EMT of [place] re:SOB, tiredness Reason for consult: Anemia Requesting provider: Michelle Florentino Narrative: I went to see this patient. He is not actively bleeding. This appears to be a chronic anemia situation. He has a history of ulcers. He and the family would like to have scoping done in [place] where his doctors are. He has been transfused. I do not believe based on my limited information about the patient that he requires an inpatient transfer. this can be done as an outpatient. His daughter who is a nurse practitioner assured to me that they could get him seen promptly. Meds Home Medications and Allergies Home Medications Medication Instructions Recorded Confirmed Type zolpidem [Ambien] 5 mg PO BEDTIME 11/24/20 11/24/20 History Allergies Allergy/AdvReac Type Severity Reaction Status Date / Time No Known Drug Allergies Allergy Verified 11/23/20 23:28 Exam Vital Signs (past 8 hours): - 11/24/20 04:15 11/24/20 04:17 11/24/20 04:43 Temperature 98.9 F 98.9 F 98.9 F Pulse Rate 73 73 70 Respiratory Rate 16 16 16 Blood Pressure 136/77 136/77 140/78 Pulse Oximetry 98 11/24/20 05:00 11/24/20 07:51 11/24/20 08:48 Temperature 98.7 F 97.8 F Pulse Rate 71 75 Respiratory Rate 14 16 Blood Pressure 134/78 146/90 H Pulse Oximetry 98 Oxygen Delivery Method Room Air Oxygen Flow Rate 0 Objective Labs Result Diagrams: 11/24/20 09:25 11/24/20 09:25 Labs: Laboratory Results - last 24 hr 11/23/20 11/23/20 11/23/20 23:30 23:30 23:30 WBC 6.1 RBC 2.04 L Hgb 4.7 L* Hct 15.5 L* MCV 76.0 L MCH 22.9 L MCHC 30.2 RDW 18.0 H Plt Count 375 Neut % (Auto) 76.5 H Lymph % (Auto) 13.7 L [place] % (Auto) 8.5 Eos % (Auto) 0.2 L Baso % (Auto) 1.1 Neut # (Auto) 4700 Lymph # (Auto) 800 L [place] # (Auto) 500 Eos # (Auto) 0 Baso # (Auto) 100 Plt Morphology Comment * RBC Morphology See below Polychromasia 1+ H Hypochromasia 2+ H Anisocytosis 2+ H Schistocytes 1+ H PT INR D-Dimer 356 H Sodium 136 L Potassium 4.4 Chloride 104 Carbon Dioxide 22 BUN 36 H Creatinine 1.51 H Estimated GFR 44.5 L BUN/Creatinine Ratio 23.8 H Glucose 101 Lactate Calcium 8.9 Magnesium 2.5 H Total Bilirubin 0.4 AST 29 ALT 25 Alkaline Phosphatase 49 Troponin I < 0.012 NT-Pro-B Natriuret Pep 435 Total Protein 6.2 L Albumin 3.9 Globulin 2.3 Albumin/Globulin Ratio 1.7 Procalcitonin Urine Color Urine Appearance Urine pH Ur Specific Lem[place] Urine Protein Urine Glucose (UA) Urine Ketones Urine Occult Blood Urine Nitrate Urine Bilirubin Urine Urobilinogen Ur Leukocyte Esterase Urine RBC Urine WBC Urine Bacteria Hyaline Casts Urine Mucus Ur Culture Indicated? SARS-CoV-2 (PCR) Blood Type Antibody Screen Crossmatch 11/23/20 11/23/20 11/23/20 23:30 23:30 23:30 WBC RBC Hgb Hct MCV MCH MCHC RDW Plt Count Neut % (Auto) Lymph % (Auto) [place] % (Auto) Eos % (Auto) Baso % (Auto) Neut # (Auto) Lymph # (Auto) [place] # (Auto) Eos # (Auto) Baso # (Auto) Plt Morphology Comment RBC Morphology Polychromasia Hypochromasia Anisocytosis Schistocytes PT INR D-Dimer Sodium Potassium Chloride Carbon Dioxide BUN Creatinine Estimated GFR BUN/Creatinine Ratio Glucose Lactate 4.5 H* Calcium Magnesium Total Bilirubin AST ALT Alkaline Phosphatase Troponin I NT-Pro-B Natriuret Pep Total Protein Albumin Globulin Albumin/Globulin Ratio Procalcitonin 0.19 Urine Color Urine Appearance Urine pH Ur Specific [place] Urine Protein Urine Glucose (UA) Urine Ketones Urine Occult Blood Urine Nitrate Urine Bilirubin Urine Urobilinogen Ur Leukocyte Esterase Urine RBC Urine WBC Urine Bacteria Hyaline Casts Urine Mucus Ur Culture Indicated? SARS-CoV-2 (PCR) Negative Blood Type Antibody Screen Crossmatch 11/23/20 11/24/20 11/24/20 23:30 00:05 02:10 WBC RBC Hgb Hct MCV MCH MCHC RDW Plt Count Neut % (Auto) Lymph % (Auto) [place] % (Auto) Eos % (Auto) Baso % (Auto) Neut # (Auto) Lymph # (Auto) [place] # (Auto) Eos # (Auto) Baso # (Auto) Plt Morphology Comment RBC Morphology Polychromasia Hypochromasia Anisocytosis Schistocytes PT 11.8 INR 1.0 D-Dimer Sodium Potassium Chloride Carbon Dioxide BUN Creatinine Estimated GFR BUN/Creatinine Ratio Glucose Lactate 1.2 Calcium Magnesium Total Bilirubin AST ALT Alkaline Phosphatase Troponin I NT-Pro-B Natriuret Pep Total Protein Albumin Globulin Albumin/Globulin Ratio Procalcitonin Urine Color Urine Appearance Urine pH Ur Specific [place] Urine Protein Urine Glucose (UA) Urine Ketones Urine Occult Blood Urine Nitrate Urine Bilirubin Urine Urobilinogen Ur Leukocyte Esterase Urine RBC Urine WBC Urine Bacteria Hyaline Casts Urine Mucus Ur Culture Indicated? SARS-CoV-2 (PCR) Blood Type A Positive Antibody Screen Negative Crossmatch See Detail 11/24/20 11/24/20 11/24/20 02:20 09:25 09:25 WBC 4.0 L RBC 2.58 L Hgb 6.7 L* Hct 20.4 L* MCV 79.2 L D MCH 25.9 L MCHC 32.6 RDW 19.1 H Plt Count 279 Neut % (Auto) 61.9 Lymph % (Auto) 16.5 L [place] % (Auto) 19.2 H Eos % (Auto) 0.7 L Baso % (Auto) 1.7 Neut # (Auto) 2500 Lymph # (Auto) 700 L [place] # (Auto) 800 Eos # (Auto) 0 Baso # (Auto) 100 Plt Morphology Comment RBC Morphology Polychromasia Hypochromasia Anisocytosis Schistocytes PT INR D-Dimer Sodium 135 L Potassium 3.7 Chloride 103 Carbon Dioxide 26 BUN 35 H Creatinine 1.33 H Estimated GFR 51.5 L BUN/Creatinine Ratio 26.3 H Glucose 88 Lactate Calcium 8.2 L Magnesium Total Bilirubin AST ALT Alkaline Phosphatase Troponin I NT-Pro-B Natriuret Pep Total Protein Albumin Globulin Albumin/Globulin Ratio Procalcitonin Urine Color Yellow Urine Appearance Clear Urine pH 5.5 Ur Specific [place] 1.015 Urine Protein Negative Urine Glucose (UA) Negative Urine Ketones Trace H Urine Occult Blood Negative Urine Nitrate Negative Urine Bilirubin Negative Urine Urobilinogen 0.2 Ur Leukocyte Esterase Negative Urine RBC None seen Urine WBC 0-1/hpf Urine Bacteria None seen Hyaline Casts 0-1/lpf Urine Mucus 1+ H Ur Culture Indicated? Cult not indicated SARS-CoV-2 (PCR) Blood Type Antibody Screen Crossmatch
[2020-11-24] MEDS: SODIUM CHLORIDE 0.9% 500 ML 21 ML IV (11:08)
[2020-11-24] MEDS: ACETAMINOPHEN 325 MG TABLET 650 MG PO (13:50)
[2020-11-24 14:38] LABS: Hematocrit 23.8 % (41-53); Hemoglobin 7.9 g/dL (13.5-17.5)
--- NOTE | 2020-11-24 15:25 | CM.DANOTE ---
Patient is an 80 yo male who was admitted on 11/24/20 for SOB. Pt has MCR for insurance and his PCP is Dr. Cyndi Damon. EMR was reviewed. Per MD, pt with worsening dyspnea and hx of upper G.I. bleed and had severe anemia in ED and received 2 units blood with guiac + in stool. Per Surgeon, recommendation is a scope pt but pt and family request that pt have any procedures at his established facility at [facility]. SW met beside with pt and explained role and he confirms he lives on [address] with his and is active and independent at baseline and has a hx of multiple G.I. bleeds. Pt denies any hx of HH or SNF and states his adult Dtr is very supportive, Deysi James [phone] and is an TAPE WEAVER, and is involved in his care. SW received a call from Dtr Deysi inquiring about the process of trying to transfer or discharge pt so that they can transport him to [facility] for ongoing scope/care. SW transferred Dtr call to Hospitalist who explained the process. Plan: SW to follow for attempting plan of discharge pt this evening via family POV and coordination with [facility] for potential direct admit after discharge since hospital transfer not covered by insurance since medical need could be met here at [facility] and family preference for [facility]. RICHY Arcos Discharge Planning/Care Management Advanced directive, confirm from FAMILY Start: 11/24/20 02:26 Freq: Q24H Status: Active Protocol: Document 11/24/20 07:49 YAD (Rec: 11/24/20 08:05 YAD [id number]) Advance Directive, confirm on record Time 07:49 Person contacted pateint Copy received No CM Discharge Assessment Start: 11/24/20 15:17 Freq: Status: Active Protocol: Document 11/24/20 15:17 BF (Rec: 11/24/20 15:25 BF [id number]) Discharge Planning Assessment Assigned House Carpenter Helper RICHY Martinez DPOA/Assigned Designee Name spouse Advance Directives? Yes History Provided By Patient,Family Member Has Patient been admitted in last 30 No days? Prior Living Arrangements House Household Members spouse Type of transporation used prior to Drives own vehicle admit Independent with ADL's Yes Is patient alert and oriented? Yes Needs Assistance With Home Chores / Shopping Caregiver for Another No Discharge Plan Home Transportation Arrangement Spouse and Dtr available to provide transport Referrals Initiated None needed Whiteboard Updated in Patient Room with Yes name and ext. # of House Carpenter Helper Review Status In Process Please Provide Date Initial DC 11/24/20 Assessment Was Performed Next Review Type Continued Stay Review
--- NOTE | 2020-11-24 16:25 | P.DS_ITS ---
History of Present Illness History of Present Illness Date Patient Seen: 11/24/20 Time Patient Seen: 17:25 Chief complaint: EMT of [place] re:SOB, tiredness Narrative: As per BEATRIZ Stack-: Edwin James is an 80 y.o. male with hypertension and hyperlipidemia presented after a several day history of exertional dyspnea. It is worsened by standing up. He denies fever, productive cough, nausea or vomiting. He does endorse a history of upper GI bleeding found initially during his last colonoscopy at [facility], and underwent subsequent upper endoscopy as they were not able to locate the source of bleeding during the colonoscopy. He stated at that time, he did not require a transfusion, nor was he symptomatic. He does endorse having scant rectal bleeding that seemed to start at the beginning of a bowel movement, but is unable to tell if his stool is coffee ground colored. He states he takes a statin but there is no medication found in our records. In the ED, he was found to have severe anemia with a hemoglobin and hematocrit of 4.7/15.5 and ED signout indicated that he was guiac positive. His lactate was also significantly elevated at 4.5. Age related D-dimer was within normal limits. He has an elevated creatinine of 1.51, though it is not known if this is his baseline. Troponin and procalcitonin were normal and he is COVID-19 negative. Patient has been type and screened and is A positive. Discharge Providers Provider Date of admission: 11/24/20 00:51 Discharge Date: 11/24/20 Primary care physician: Cyndi Damon MD Consults: 11/24/20 01:48 Consult to General Surgery Routine Comment: Consulting Provider: Jonny Giordano Reason for consultation: Severe anemia, hx of upper gi bleed Has provider been notified: Yes Discharge provider: Jatinder Joaquin DO Summary Hospital Course Discharge Diagnosis: 1. Acute blood loss anemia, present on admission 2. GI bleed, present on admission 3. Elevated creatinine 4. Elevated lactic acid, present on admission, resolved Hospital Course: Edwin James is an 80-year-old male who presented to the hospital with dyspnea on exertion. He was found to have a hemoglobin of 4.7 (hct 15.5) with guiaic positive stools on admission and was admitted for symptomatic anemia likely secondary to GI bleeding. Admission labs also showed a creatinine of 1.51, but his baseline was unknown and an elevated lactate to 4.3. He was given 80 mg of Protonix, then started on a Protonix infusion in the emergency room. He has a reported history of a peptic ulcer, but per patient report 5 years ago he had a colonoscopy and endoscopy which did not reveal a source of bleeding. On admission, his EKG showed normal sinus rhythm without any evidence of ischemia and troponin was negative. The patient's symptoms improved after 2 units of packed red blood cells. This improved his hemoglobin to 6.7, lactate to 1.2, and his creatinine to 1.33. Another unit of blood was given with improvement in his hemoglobin to 7.9 / 24. Surgery was consulted but the patient preferred to have further evaluation with his usual care team at [facility]. The patient contacted his primary care provider, whom then contacted a hospitalist at [facility], whom I then discussed the case with. Given the likelihood of a slow GI bleed, the current plan is to discharge him from this hospital and have him be a direct admission at [facility] once a bed becomes available. Patient understands the potential risks of self transport, and I recommended someone else drive him if possible, and is in agreement with the above plan. Time Spent with Patient Time spent: Greater than 30 minutes Exam Vital Signs (past 8 hours): - 11/24/20 08:48 11/24/20 11:05 11/24/20 11:22 Temperature 97.8 F 97.4 F L 98.0 F Pulse Rate 75 73 80 Respiratory Rate 16 16 16 Blood Pressure 146/90 H 156/88 H 126/77 Pulse Oximetry 11/24/20 13:39 11/24/20 16:03 Temperature 98.3 F 98.4 F Pulse Rate 77 76 Respiratory Rate 16 20 Blood Pressure 139/88 139/92 H Pulse Oximetry 97 Oxygen Delivery Method Room Air Oxygen Flow Rate 0 Narrative Exam Narrative: GENERAL APPEARANCE: Well developed, well nourished, in no acute distress. SKIN: Inspection of the skin reveals no rashes, ulcerations or petechiae. HEENT: Normocephalic atraumatic, extraocular muscles are intact, oropharynx is clear and mucous membranes are moist, neck is supple without adenopathy NECK: Supple and symmetric. There was no thyroid enlargement, and no tenderness, or masses were felt. CHEST: Normal AP diameter and normal contour without any kyphoscoliosis. LUNGS: Auscultation of the lungs revealed no wheezes, rhonchi, or rales. CARDIOVASCULAR: There was a regular rate and rhythm without any murmurs, gallops, rubs. Peripheral pulses were 2+ and symmetric. ABDOMEN: Soft and nontender with normal bowel sounds. No ascites was noted. MUSCULOSKELETAL: There was no tenderness or effusions noted. Muscle strength and tone were normal. EXTREMITIES: No cyanosis, clubbing or edema. NEUROLOGIC: Alert and oriented x 3. Normal affect. Gait was normal. Strength is +5/5 in the Upper Extremities and Lower Extremities Bilaterally. Sensation to touch was normal. Objective Labs Result Diagrams: 11/24/20 14:26 11/24/20 09:25 Labs: Laboratory Results - last 24 hr 11/23/20 11/23/20 11/23/20 23:30 23:30 23:30 WBC 6.1 RBC 2.04 L Hgb 4.7 L* Hct 15.5 L* MCV 76.0 L MCH 22.9 L MCHC 30.2 RDW 18.0 H Plt Count 375 Neut % (Auto) 76.5 H Lymph % (Auto) 13.7 L Elliott % (Auto) 8.5 Eos % (Auto) 0.2 L Baso % (Auto) 1.1 Neut # (Auto) 4700 Lymph # (Auto) 800 L Elliott # (Auto) 500 Eos # (Auto) 0 Baso # (Auto) 100 Plt Morphology Comment * RBC Morphology See below Polychromasia 1+ H Hypochromasia 2+ H Anisocytosis 2+ H Schistocytes 1+ H PT INR D-Dimer 356 H Sodium 136 L Potassium 4.4 Chloride 104 Carbon Dioxide 22 BUN 36 H Creatinine 1.51 H Estimated GFR 44.5 L BUN/Creatinine Ratio 23.8 H Glucose 101 Lactate Calcium 8.9 Magnesium 2.5 H Total Bilirubin 0.4 AST 29 ALT 25 Alkaline Phosphatase 49 Troponin I < 0.012 NT-Pro-B Natriuret Pep 435 Total Protein 6.2 L Albumin 3.9 Globulin 2.3 Albumin/Globulin Ratio 1.7 Procalcitonin Urine Color Urine Appearance Urine pH Ur Specific Engelhard Urine Protein Urine Glucose (UA) Urine Ketones Urine Occult Blood Urine Nitrate Urine Bilirubin Urine Urobilinogen Ur Leukocyte Esterase Urine RBC Urine WBC Urine Bacteria Hyaline Casts Urine Mucus Ur Culture Indicated? SARS-CoV-2 (PCR) Blood Type Antibody Screen Crossmatch 11/23/20 11/23/20 11/23/20 23:30 23:30 23:30 WBC RBC Hgb Hct MCV MCH MCHC RDW Plt Count Neut % (Auto) Lymph % (Auto) Elliott % (Auto) Eos % (Auto) Baso % (Auto) Neut # (Auto) Lymph # (Auto) Elliott # (Auto) Eos # (Auto) Baso # (Auto) Plt Morphology Comment RBC Morphology Polychromasia Hypochromasia Anisocytosis Schistocytes PT INR D-Dimer Sodium Potassium Chloride Carbon Dioxide BUN Creatinine Estimated GFR BUN/Creatinine Ratio Glucose Lactate 4.5 H* Calcium Magnesium Total Bilirubin AST ALT Alkaline Phosphatase Troponin I NT-Pro-B Natriuret Pep Total Protein Albumin Globulin Albumin/Globulin Ratio Procalcitonin 0.19 Urine Color Urine Appearance Urine pH Ur Specific Engelhard Urine Protein Urine Glucose (UA) Urine Ketones Urine Occult Blood Urine Nitrate Urine Bilirubin Urine Urobilinogen Ur Leukocyte Esterase Urine RBC Urine WBC Urine Bacteria Hyaline Casts Urine Mucus Ur Culture Indicated? SARS-CoV-2 (PCR) Negative Blood Type Antibody Screen Crossmatch 11/23/20 11/24/20 11/24/20 23:30 00:05 02:10 WBC RBC Hgb Hct MCV MCH MCHC RDW Plt Count Neut % (Auto) Lymph % (Auto) Elliott % (Auto) Eos % (Auto) Baso % (Auto) Neut # (Auto) Lymph # (Auto) Elliott # (Auto) Eos # (Auto) Baso # (Auto) Plt Morphology Comment RBC Morphology Polychromasia Hypochromasia Anisocytosis Schistocytes PT 11.8 INR 1.0 D-Dimer Sodium Potassium Chloride Carbon Dioxide BUN Creatinine Estimated GFR BUN/Creatinine Ratio Glucose Lactate 1.2 Calcium Magnesium Total Bilirubin AST ALT Alkaline Phosphatase Troponin I NT-Pro-B Natriuret Pep Total Protein Albumin Globulin Albumin/Globulin Ratio Procalcitonin Urine Color Urine Appearance Urine pH Ur Specific Engelhard Urine Protein Urine Glucose (UA) Urine Ketones Urine Occult Blood Urine Nitrate Urine Bilirubin Urine Urobilinogen Ur Leukocyte Esterase Urine RBC Urine WBC Urine Bacteria Hyaline Casts Urine Mucus Ur Culture Indicated? SARS-CoV-2 (PCR) Blood Type A Positive Antibody Screen Negative Crossmatch See Detail 11/24/20 11/24/20 11/24/20 02:20 09:25 09:25 WBC 4.0 L RBC 2.58 L Hgb 6.7 L* Hct 20.4 L* MCV 79.2 L D MCH 25.9 L MCHC 32.6 RDW 19.1 H Plt Count 279 Neut % (Auto) 61.9 Lymph % (Auto) 16.5 L Elliott % (Auto) 19.2 H Eos % (Auto) 0.7 L Baso % (Auto) 1.7 Neut # (Auto) 2500 Lymph # (Auto) 700 L Elliott # (Auto) 800 Eos # (Auto) 0 Baso # (Auto) 100 Plt Morphology Comment RBC Morphology Polychromasia Hypochromasia Anisocytosis Schistocytes PT INR D-Dimer Sodium 135 L Potassium 3.7 Chloride 103 Carbon Dioxide 26 BUN 35 H Creatinine 1.33 H Estimated GFR 51.5 L BUN/Creatinine Ratio 26.3 H Glucose 88 Lactate Calcium 8.2 L Magnesium Total Bilirubin AST ALT Alkaline Phosphatase Troponin I NT-Pro-B Natriuret Pep Total Protein Albumin Globulin Albumin/Globulin Ratio Procalcitonin Urine Color Yellow Urine Appearance Clear Urine pH 5.5 Ur Specific Engelhard 1.015 Urine Protein Negative Urine Glucose (UA) Negative Urine Ketones Trace H Urine Occult Blood Negative Urine Nitrate Negative Urine Bilirubin Negative Urine Urobilinogen 0.2 Ur Leukocyte Esterase Negative Urine RBC None seen Urine WBC 0-1/hpf Urine Bacteria None seen Hyaline Casts 0-1/lpf Urine Mucus 1+ H Ur Culture Indicated? Cult not indicated SARS-CoV-2 (PCR) Blood Type Antibody Screen Crossmatch 11/24/20 14:26 WBC RBC Hgb 7.9 L Hct 23.8 L MCV MCH MCHC RDW Plt Count Neut % (Auto) Lymph % (Auto) Elliott % (Auto) Eos % (Auto) Baso % (Auto) Neut # (Auto) Lymph # (Auto) Elliott # (Auto) Eos # (Auto) Baso # (Auto) Plt Morphology Comment RBC Morphology Polychromasia Hypochromasia Anisocytosis Schistocytes PT INR D-Dimer Sodium Potassium Chloride Carbon Dioxide BUN Creatinine Estimated GFR BUN/Creatinine Ratio Glucose Lactate Calcium Magnesium Total Bilirubin AST ALT Alkaline Phosphatase Troponin I NT-Pro-B Natriuret Pep Total Protein Albumin Globulin Albumin/Globulin Ratio Procalcitonin Urine Color Urine Appearance Urine pH Ur Specific [place]elhard Urine Protein Urine Glucose (UA) Urine Ketones Urine Occult Blood Urine Nitrate Urine Bilirubin Urine Urobilinogen Ur Leukocyte Esterase Urine RBC Urine WBC Urine Bacteria Hyaline Casts Urine Mucus Ur Culture Indicated? SARS-CoV-2 (PCR) Blood Type Antibody Screen Crossmatch [facility] Medical History (Updated 11/24/20 @ 01:51 by RACHELE Myers) Closed pelvic fracture History of upper gastrointestinal bleeding Hyperlipidemia Hypertension Surgical History (Updated 11/24/20 @ 01:51 by RACHELE Myers) H/O wrist surgery Family History (Updated 11/24/20 @ 01:53 by RACHELE Myers) Father Cancer of kidney Mother Breast CA Daughter Celiac disease Social History household members: spouse Smoking Status: Never smoker Discharge Plan Discharge Plan Patient Disposition: Released, Other Provider Discharge Comment: Edwin James is an 80-year-old male who presented to the hospital with dyspnea on exertion. He was found to have a hemoglobin of 4.7 (hct 15.5) with guiaic positive stools on admission and was a dmitted for symptomatic anemia likely secondary to GI bleeding. Admission labs also showed a creatinine of 1.51, but his baseline was unknown and an elevated lactate to 4.3. He was given 80 mg of Protonix, then started on a Protonix infusion in the emergency room. He has a reported history of a peptic ulcer, but per patient report 5 years ago he had a colonoscopy and endoscopy which did not reveal a source of bleeding. On admission, his EKG showed normal sinus rhythm without any evidence of ischemia and troponin was negative. The patient's symptoms improved after 2 units of packed red blood cells. This improved his hemoglobin to 6.7, lactate to 1.2, and his creatinine to 1.33. Another unit of blood was given with improvement in his hemoglobin to 7.9 / 24. Surgery was consulted but the patient preferred to have further evaluation with his usual care team at [facility]. The patient contacted his primary care provider, whom then contacted a hospitalist at [facility], whom I then discussed the case with. Given the likelihood of a slow GI bleed, the current plan is to discharge him from this hospital and have him be a direct admission at [facility] once a bed becomes available. Patient understands the potential risks of self transport, and I recommended someone else drive him if possible, and is in agreement with the above plan. Discharge orders & Medications Discharge Orders: Discharge (Order); Ordered 11/24/20 Ordered By: Jatinder Joaquin Prescriptions: New pantoprazole [Protonix] 40 mg Recon Soln 40 mg IV BID 7 Days RF: 0 Continued zolpidem [Ambien] 5 mg tablet 5 mg PO BEDTIME RF: 0 Follow up/Referrals: Cyndi Damon MD [Primary Care Provider] - Discharge Health Status Precautions: Maynard Diet/Activity/Treatments Diet: Nothing by Mouth Discharge Data Primary Care Provider: Cyndi Damon Quality VTE Deep Vein Thrombosis/Pulmonary Embolism Present on Admission: No
[2020-11-25] VITALS: BP 146/94; PULSE 72; RESP 18; TEMP 36.3; O2SAT 95
[2020-11-25 05:00] VITALS: BP 127/71; PULSE 78; RESP 18; TEMP 36.8; O2SAT 97
--- NOTE | 2020-11-25 05:06 | PC.NURSE ---
0507 Report given to Tamiko GARCIA. in [place]. Informed that patient's will be discharging from [facility] this morning via private vehicle & spouse will driving patient to [place].
--- NOTE | 2020-11-25 06:07 | PC.NURSE ---
0600 Pt. discharged to transfer to [place] via private transport. Spouse will drive pt. to [place] & direction was sent with pt. LAC IV access discontinued & IV was intact.
== END 2020-11-25 06:00 | disposition short-term general hospital (02) | DRG 812 ==
LOC: ED 23:47 → AC 11-24 00:51
PROVIDERS: Internal Medicine; Admitting Provider Nurse Practitioner Family; Emergency Provider Emergency Medicine; PCP Family Medicine; Referring Provider Emergency Medicine; Visit Provider Nurse Practitioner Family
DX: D62 Acute posthemorrhagic anemia (principal); K92.1 Melena; R94.4 Abnormal results of kidney function studies; R74.02 Elevation of levels of lactic acid dehydrogenase [LDH]; Z20.822 Contact with and (suspected) exposure to COVID-19
CPT/HCPCS: 36415; 36430; 71045; 80048; 80053; 81001; 83605; 83735; 83880; 84145; 84484; 85014; 85018; 85025; 85379; 85610; 86850; 86900; 86901; 87040; 87635; 93005; 94762; 96365; 96375; 99231; 99284; 99285; C9803; P9016; C9113; J1200; J1940